=== PATIENT | male | born 1975 | race Caucasian/White ===

== ENCOUNTER 2017-10-20 15:29 | Emergency (ER) | payer OTHER ==
[~2017-10-20] VITALS: Ht 172.7 cm; Wt 86.8 kg
[~2017-10-20 15:29] MED LIST: AMOXICILLIN 50500 MG PO; ANALPRAM HC 1%30 GM RECTAL; BACTROBAN15 GM TP; CARISOPRODOL 3350 MG PO; FLEXERIL PO; HIBICLENS120 ML TP; HYDROCODON-ACE1 EACH PO; IBUPROFEN 800800 M1 PO; IRON325; KEFLEX500 MG PO; LORTAB 5-500 T1 EAC1 PO; MEDROLDOSEPACK PO; MOBIC15 MG PO; NAPROSYN500 MG PO; NORCO 5-325 TA1 EACH PO; ROBAXIN500 MG PO; SYNTHROID300 MCG PO; ULTRAM 50MG TAB50 MG PO; ZOFRAN4 MG PO; ZPAK PO
[2017-10-20] MEDS ORDERED: LEVOTHYROXINE300 MCG PO (17:14)
[2017-10-20 17:25] VITALS: BP 125/88
== END 2017-10-20 17:26 | disposition home or self-care (01) ==
LOC: M.ERS 15:29
DX: E03.9 Hypothyroidism, unspecified (principal); K64.9 Unspecified hemorrhoids; F17.210 Nicotine dependence, cigarettes, uncomplicated

== ENCOUNTER 2018-03-06 10:46 | Emergency (ER) | payer OTHER ==
[~2018-03-06] VITALS: Ht 172.7 cm; Wt 81.7 kg
[~2018-03-06 10:46] MED LIST changes: +LEVOTHYROXINE300 MCG PO
[2018-03-06] MEDS ORDERED: SYNTHROID150 MCG PO (11:29)
[2018-03-06 11:43] VITALS: BP 104/53
== END 2018-03-06 11:43 | disposition home or self-care (01) ==
LOC: M.ERS 10:46
DX: J40 Bronchitis, not specified as acute or chronic (principal); E03.9 Hypothyroidism, unspecified; F17.210 Nicotine dependence, cigarettes, uncomplicated

== ENCOUNTER 2018-05-03 06:27 | Emergency (ER) | payer OTHER ==
[~2018-05-03] VITALS: Ht 172.7 cm; Wt 79.8 kg
[~2018-05-03 06:27] MED LIST changes: +SYNTHROID150 MCG PO
[2018-05-03] MEDS ORDERED: HYDROCODONE-AP1 EAC6 PO (07:55)
[2018-05-03 08:13] VITALS: BP 124/77
== END 2018-05-03 08:13 | disposition home or self-care (01) ==
LOC: M.ERS 06:27
DX: S92.421A Displaced fracture of distal phalanx of right great toe, initial encounter for closed fracture (principal); E03.9 Hypothyroidism, unspecified; F17.210 Nicotine dependence, cigarettes, uncomplicated; X50.9XXA Other and unspecified overexertion or strenuous movements or postures, initial encounter; Y93.89 Activity, other specified; Y92.89 Other specified places as the place of occurrence of the external cause; Y99.8 Other external cause status

== ENCOUNTER 2018-06-21 10:03 | Emergency (ER) | payer OTHER ==
[~2018-06-21] VITALS: Ht 172.7 cm; Wt 79.8 kg
[~2018-06-21 10:03] MED LIST changes: +HYDROCODONE-AP1 EAC6 PO
[2018-06-21 10:07] VITALS: BP 126/83
[2018-06-21] MEDS ORDERED: SYNTHROID300 MCG PO (10:22)
== END 2018-06-21 10:33 | disposition home or self-care (01) ==
LOC: M.ERS 10:03
DX: E03.9 Hypothyroidism, unspecified (principal); Z76.0 Encounter for issue of repeat prescription; F17.210 Nicotine dependence, cigarettes, uncomplicated

== ENCOUNTER 2018-08-11 08:27 | Emergency (ER) | payer MEDICAID ==
[~2018-08-11] VITALS: Ht 172.7 cm; Wt 79.8 kg
[2018-08-11] MEDS ORDERED: TRAMADOL 50 MG50 MG PO (08:37)
[2018-08-11] MEDS ORDERED: AZITHROMYCIN 2250 MG PO (09:32)
[2018-08-11] MEDS ORDERED: VENTOLIN HFA 1818 GM INH (09:32)
[2018-08-11] MEDS ORDERED: MEDROLDOSEPACK PO (09:32)
[2018-08-11 10:10] LABS: INFLUENZA A ANTIGEN None Detected (None Detect); INFLUENZA B ANTIGEN None Detected (None Detect)
[2018-08-11 10:49] VITALS: BP 125/68
== END 2018-08-11 10:47 | disposition home or self-care (01) ==
LOC: M.ERS 08:27
PROVIDERS: Personal Emergency Response Attendant
DX: J40 Bronchitis, not specified as acute or chronic (principal); E03.9 Hypothyroidism, unspecified; F17.210 Nicotine dependence, cigarettes, uncomplicated

== ENCOUNTER 2018-11-30 13:01 | Emergency (ER) | payer MEDICAID ==
[~2018-11-30] VITALS: Ht 172.7 cm; Wt 79.8 kg
[~2018-11-30 13:01] MED LIST changes: +AZITHROMYCIN 2250 MG PO; +TRAMADOL 50 MG50 MG PO; +VENTOLIN HFA 1818 GM INH
[2018-11-30] MEDS ORDERED: NEURONTIN 300300 M1 PO (13:18)
[2018-11-30] MEDS ORDERED: BACLOFEN 10MG T10 MG PO (13:20)
[2018-11-30] MEDS ORDERED: TRAMADOL 50 MG50 MG PO (14:52)
[2018-11-30 15:04] VITALS: BP 158/88
== END 2018-11-30 15:06 | disposition home or self-care (01) ==
LOC: M.ERS 13:01
DX: S32.010A Wedge compression fracture of first lumbar vertebra, initial encounter for closed fracture (principal); E03.9 Hypothyroidism, unspecified; K64.9 Unspecified hemorrhoids; F17.210 Nicotine dependence, cigarettes, uncomplicated; X58.XXXA Exposure to other specified factors, initial encounter; Y93.89 Activity, other specified; Y92.89 Other specified places as the place of occurrence of the external cause; Y99.8 Other external cause status

== ENCOUNTER 2020-12-25 11:33 | Emergency (ER) | payer OTHER ==
[~2020-12-25] VITALS: Ht 172.7 cm; Wt 81.7 kg
[~2020-12-25 11:33] MED LIST changes: +BACLOFEN 10MG T10 MG PO; +NEURONTIN 300300 M1 PO
[2020-12-25] MEDS ORDERED: LEVOTHYROXINE137 MC1 PO ×2 (11:59→13:36)
[2020-12-25 13:56] VITALS: BP 141/70
== END 2020-12-25 13:56 | disposition home or self-care (01) ==
LOC: M.ERS 11:33
DX: E03.9 Hypothyroidism, unspecified (principal); Z76.0 Encounter for issue of repeat prescription; F17.210 Nicotine dependence, cigarettes, uncomplicated; Z79.899 Other long term (current) drug therapy

== ENCOUNTER 2021-01-14 12:07 | Emergency (ER) | payer OTHER ==
[~2021-01-14] VITALS: Ht 172.7 cm; Wt 84.4 kg
[~2021-01-14 12:07] MED LIST changes: +LEVOTHYROXINE137 MC1 PO
[2021-01-14] MEDS ORDERED: CEPHALEXIN500 MG PO (12:44)
[2021-01-14 12:52] VITALS: BP 126/87
== END 2021-01-14 12:52 | disposition home or self-care (01) ==
LOC: M.ERS 12:07
DX: S69.81XA Other specified injuries of right wrist, hand and finger(s), initial encounter (principal); E03.9 Hypothyroidism, unspecified; X58.XXXA Exposure to other specified factors, initial encounter; Y93.89 Activity, other specified; Y92.89 Other specified places as the place of occurrence of the external cause; Y99.8 Other external cause status